=== PATIENT | female | born 1980 | race Caucasian/White ===

== ENCOUNTER 2016-06-09 19:00 | Emergency (ER) | payer BC, MEDICAID ==
[~2016-06-09] VITALS: Ht 157.5 cm; Wt 63.5 kg
[~2016-06-09 19:00] MED LIST: LEVO50TA66 PO
[2016-06-09 19:04] VITALS: BP 178/86
== END 2016-06-10 01:10 | disposition left against medical advice (07) ==
LOC: ER 19:05
DX: R07.9 Chest pain, unspecified (principal); R06.02 Shortness of breath; Z53.21 Procedure and treatment not carried out due to patient leaving prior to being seen by health care provider
CPT/HCPCS: 93005